=== PATIENT | female | born 1970 | race Caucasian/White ===

== ENCOUNTER 2020-09-08 08:45 | Outpatient (REF) | payer BC, SELFPAY ==
--- NOTE | ~2020-09-08 | XR_ITS ---
EXAMINATION: XR KNEE, RIGHT CLINICAL INFORMATION: Pain. COMPARISON: None TECHNIQUE: Four views of the right knee. FINDINGS: There is mild loss of medial and patellofemoral compartment joint space with periarticular spurring. There is a small osteophyte along the superior patella. There is mild suprapatellar joint effusion. No bony erosive changes seen. 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 There is a small osteophyte of the superior patella. Minimal joint effusion. No acute fracture seen.
== END 2020-09-08 08:46 | disposition home or self-care (01) ==
LOC: HO.HMGCLDS 08:45
PROVIDERS: PCP Hospitalist; Visit Provider Nurse Practitioner Family
DX: M25.561 Pain in right knee (principal)
CPT/HCPCS: 73564

== ENCOUNTER 2022-12-07 09:28 | Outpatient (AMB) | payer BC, SELFPAY ==
[2022-12-07 10:00] VITALS: BP 102/60; PULSE 61; TEMP 36.4; O2SAT 97; BMI 23.6
--- NOTE | 2022-12-07 10:00 | MHC.OFFWIV ---
Intake Vital Signs 12/07/22 10:00 Height 5 ft 6 in Weight 146 lb BMI 23.6 BP 102/60 Blood Pressure Location Rt brachial Position Sitting Pulse 61 Pulse Source Pulse Oximeter Temp 97.5 F Temp Source Temporal Artery Scan Pulse Oximetry (%) 97 Oxygen Delivery Method Room Air Intake Visit Reasons: EP, headache Intake Note: Pt is here c/o head pressure and constant headache for the past 24 hours. Patient Tobacco Use Status: Never used Tobacco Allergies caffeine [Caffeine] Allergy (Mild, Unverified 12/07/22 10:13) LETHARGY/DIZZINES Medication List - Last Reconciled 12/07/22 by Kale Fonseca MD estradiol 1 patch topical QWEEK progesterone micronized 100 mg PO BEDTIME Do you need a note to return to daycare/school/sports/work: No HPI EP, headache HPI Details Patient presents for a sick visit. Reporting symptoms of sinus congestion, sore throat and difficulty swallowing. Low-grade fever. No family member is sick. No recent travel. Patient reports symptoms of malaise and fatigue. [facility] Social History Alcohol intake: current Alcohol intake frequency: a few times a week Patient Tobacco Use Status: Never used Tobacco Physical Exam Vital Signs: Last Vital Signs Temp 97.5 F 12/07/22 10:00 Pulse 61 12/07/22 10:00 BP 102/60 12/07/22 10:00 Pulse Ox 97 12/07/22 10:00 Oxygen Delivery Method Room Air 12/07/22 10:00 BMI result Body Mass Index 23.6 Const General: cooperative and healthy appearing Nutritional Appearance: well nourished Orientation/consciousness: patient oriented x3 Limitations: no limitations HEENT Head: Yes normal to inspection Eyes General: appearance normal, both eyes and all related structures Neck Neck: Yes normal visual inspection Chest Chest palpation & inspection: normal palpation of entire chest wall Resp Effort & Inspection: normal respiratory effort Neuro General: patient oriented x3 Assessment & Plan Assessment & Plan (1) Upper respiratory tract infection: Code(s): J06.9 - Acute upper respiratory infection, unspecified Plan: Antibiotics ordered. Increase fluid intake. Tylenol for aches and pains. If symptoms worsen, follow-up here for a recheck. Coding Level of Care Code Est Pt Level 3 (60025) Diagnoses Upper respiratory tract infection J06.9
== END 2022-12-07 10:22 | disposition home or self-care (01) ==
PROVIDERS: PCP Hospitalist; Visit Provider Internal Medicine
DX: J06.9 Acute upper respiratory infection, unspecified (principal)
CPT/HCPCS: 99213